=== PATIENT | female | born 1980 | race Two or more races ===

== ENCOUNTER → 2020-06-01 08:23 | Outpatient (CLI) | payer OTHER | END | disposition home or self-care (01) | LOC: LAB 08:23 | PROVIDERS: ATTEND Surgery | DX: R10.13 Epigastric pain (principal); R00.8 Other abnormalities of heart beat; E66.01 Morbid (severe) obesity due to excess calories; R73.09 Other abnormal glucose; E56.8 Deficiency of other vitamins ==

== ENCOUNTER 2020-06-04 06:00 | Day surgery (SDC) | payer OTHER | END 2020-06-04 10:25 | disposition home or self-care (01) | LOC: AMB-ENDOS 06:00 → ADM 14:15 → AMB-ENDOS 14:15 | PROVIDERS: ATTEND Surgery | DX: D13.0 Benign neoplasm of esophagus (principal); K44.9 Diaphragmatic hernia without obstruction or gangrene; Z20.828 Contact with and (suspected) exposure to other viral communicable diseases ==

== ENCOUNTER 2020-07-07 10:02 | Outpatient (CLI) | payer OTHER | END 2020-07-07 10:13 | disposition home or self-care (01) | LOC: RX STUDY 10:02 | PROVIDERS: ATTEND Surgery | DX: R10.13 Epigastric pain (principal); K21.9 Gastro-esophageal reflux disease without esophagitis ==